=== PATIENT | female | born 1985 | race Caucasian/White ===

== ENCOUNTER 2022-10-01 19:48 | Emergency (ER) | payer MEDICAID, SELFPAY ==
[2022-10-01 19:50] VITALS: BP 113/73; PULSE 78; TEMP 37; O2SAT 97; BMI 30.2
--- NOTE | 2022-10-01 20:14 | ED_ITS ---
HPI - General Adult General Chief complaint: Sore Throat Stated complaint: Pain in throat Time Seen by Provider: 10/01/22 19:56 Source: patient Mode of arrival: ambulatory Limitations: no limitations History of Present Illness HPI narrative: 37-year-old female presents the emergency department with a 5 day history of mild sore throat. Her pain is not been bad enough to try taking Tylenol or ibuprofen. There are no severe symptoms like bleeding, inability to swallow, shortness of breath. Pain is bilateral, located near the tonsils. Does radiate down the throat slightly. She still eating and drinking normally. No known illness exposures. Had strep throat 2 years ago and states that this feels similar. No systemic symptoms. No fever. She has not tried being evaluated in clinic or urgent care any time in the last 5 days. She reports her past medical history is benign, no major long-term health problems. Denies long-term medications. Does have an amoxicillin allergy. ROS notable for HEENT symptoms as above only, otherwise denies other generalized, HEENT respiratory or skin changes Related Data Home Medications Medication Instructions Recorded Confirmed No Known Home Medications 10/01/22 10/01/22 Allergies Allergy/AdvReac Type Severity Reaction Status Date / Time amoxicillin Allergy Mild Rash Verified 10/01/22 19:54 Latex, Natural Rubber Allergy Mild Rash Verified 10/01/22 19:54 PFSH PFSH Social History Smoking Status: Never smoker Do you use any of these nicotine containing products: None Second hand tobacco smoke exposure: No How often do you have a drink containing alcohol: never AUDIT-C Alcohol total score: 0 Non-prescribed substance use: denies use service: No Exam Const: Vital Signs, click to edit/add: Vital Signs - 24 hr 10/01/22 19:50 Temperature 98.6 F Pulse Rate [Pulse Oximeter] 78 Blood Pressure [Ri ght Upper Arm] 113/73 Pulse Oximetry 97 Oxygen Delivery Me thod Room Air Documenting provider has reviewed patient's vital signs: yes Common normals: no apparent distress General appearance: cooperative and well kempt Other: Does not appear acutely ill HENMT: Common normals: TM's normal bilaterally Tympanic membrane: TM's normal bilaterally Other: No blisters, no enlargement of tonsils, minimal erythema to the tonsillar pillars. No swelling or exudate. Normal appearance of tongue, lips and other oral mucosa. Normal dentition Eye: Common normals: conjunctivae normal General eye: normal appearance of both eyes Conjunctiva: conjunctiva(e) normal Neck & C-Spine: Common normals: full ROM Other: Mild anterior cervical lymphadenopathy only. Resp: Common normals: normal respiratory effort, no use of accessory muscles and clear to auscultation bilaterally Effort & inspection: able to speak in complete sentences Auscultation: clear to auscultation bilaterally Cardio: Common normals: regular rate, regular rhythm, S1 normal heart sound, S2 normal heart sound and no murmurs Rate: regular rate Rhythm: regular rhythm Heart sounds: S1 normal and S2 normal Psych: Appearance: well kempt Attitude: engaged Activity/motor behavior: appropriate eye contact Mood and affect: euthymic mood Skin: Common normals: no rashes or lesions noted General skin exam: no rashes or lesions noted Course Course Hospital Course: No red flags or signs of severe illness, fevers, dehydration, swelling or abscess. Recommend strep swab. Offered Tylenol for pain, she accepts offer. Await strep results Reevaluation(s) Time of Reevaluation #1: 20:59 Reevaluation #1: Findings discussed with patient. Suspect virus, all questions answered. Alarm symptoms reviewed. Follow-up with primary care provider if not improving in 10 days Vital Signs Vital signs: Initial Vital Signs Temperature 98.6 F 10/01/22 19:50 Temperature Source Temporal Artery Scan 10/01/22 19:50 Pulse Rate 78 10/01/22 19:50 Blood Pressure 113/73 10/01/22 19:50 Blood Pressure Mean 86 10/01/22 19:50 Blood Pressure Position Sitting 10/01/22 19:50 Pulse Oximetry 97 10/01/22 19:50 Oxygen Delivery Method Room Air 10/01/22 19:50 Vital Signs Temperature 98.6 F 10/01/22 19:50 Pulse Rate 78 10/01/22 19:50 Blood Pressure 113/73 10/01/22 19:50 Pulse Oximetry 97 10/01/22 19:50 Oxygen Delivery Method Room Air 10/01/22 19:50 Temperature 98.6 F 10/01/22 19:50 Pulse Rate 78 10/01/22 19:50 Blood Pressure 113/73 10/01/22 19:50 Pulse Oximetry 97 10/01/22 19:50 Oxygen Delivery Method Room Air 10/01/22 19:50 Medical Decision Making Lab Data Lab results reviewed: Yes I reviewed the patient's lab results Lab results narrative: Negative, as expected Labs: Lab Results 10/01/22 Range/Units 17:59 Group A Strep DNA NOT DETECTED (Not Detectd) Discharge Plan Discharge Clinical Impression: Acute viral pharyngitis Patient Disposition: Home w/ Parent or Adult Condition: Stable Instructions: Pharyngitis (ED) Additional Instructions: As we discussed, your strep swab is negative. Your sore throat is most likely caused by simple virus. These are common and contagious. They are not dangerous. Things should improve within about 10 days. Come to the emergency department if your sore throat is so severe that you cannot hold down any liquids for at least 2 days, you have persistent high fevers over 100.4 or you are too weak to ambulate. If her symptoms are not improving in 10 days, I recommend making a follow-up appointment in the clinic to investigate for other sources. In the meantime, you should be using ibuprofen 600 mg every 6 hours as needed for pain and/or Tylenol 1000 mg every 6 hours. You were given Tylenol in the emergency department. You may return to work and or school with no restrictions at this time. Activity Level: No Restrictions Discharge Diet: Regular Prescriptions: No Action No Known Home Medications Stand Alone Forms: [employer] Info Instructions
[2022-10-01] MEDS: ACETAMINOPHEN 500 MG TABLET 1000 MG PO (20:24)
[2022-10-01 20:41] LABS: Strep A DNA Probe* NOT DETECTED (Not Detectd)
== END 2022-10-01 21:06 | disposition home or self-care (01) ==
PROVIDERS: Emergency Provider Family Medicine
DX: J02.9 Acute pharyngitis, unspecified (principal)
CPT/HCPCS: 87651; 99283; A9270

== ENCOUNTER 2024-02-21 17:10 | Emergency (ER) | payer MEDICAID, SELFPAY ==
--- OUTSIDE RECORDS SUMMARY | 2024-02-21 17:11 | XMS_ITS | Clinical Summary ---
Author Organization Formerly [facility], [facility]–1983 Address [address] [address] Care Team Providers Care Sub Acute Care Nurse Name Role Phone Needs Pcp, Assignment Primary Care Provider [phone] Source Comments You are receiving this document as you are listed as the primary care provider,follow-up provider, or the patient has been referred to you for consultation.This is in compliance with the Medicare and[facility],which states Providers who transition their patient to another setting of careor provider of care or refers their patient to another provider of care shouldprovide summary care record for each transition of care or referral. [facility] Allergies Active Allergy Reactions Criticality Noted Date Comments Amoxicillin Rash 07/20/2016 [place] Hives High 07/09/2020 Rashes Latex Rash 07/20/2016 Other Rash 10/20/2020 Cotton clothing and spinal anesthesia Penicillin G Rash 07/20/2016 Medications Medication Sig Dispensed Refills Start Date End Date Status furosemide (LASIX) 20 MG tablet Take 1 Tablet by mouth daily for 2 days. 2 Tablet 10/29/2020 Active Additional Information Patient not taking.Reported on 12/29/2020 Active Problems No known active problems Resolved Problems Problem Noted Date Diagnosed Date Resolved Date Multigravida of advanced mat ernal age in second trimester 07/09/2020 10/24/2020 Previous delivery a ffecting , antepartum 07/09/2020 10/24/2020 Multigravida of advanced mat ernal age in first trimester 06/02/2020 03/20/2021 Immunizations Name Administration Dates Next Due DTP 03/21/1995, 4,05/12/1987,10/03/1985, HepB, Unspecified Formulation 07/19/2001, 002,02/08/2001,01/28/2000 IPV (Polio) 06/28/1993,04/24/1986,06/16/1984 ,04/21/1984 MMR 01/28/2000,04/21/1997,12/26/1984 Tdap 06/09/2009 Family History Medical History Relation Name Comments Heart Father - on blood thin ners Relation Name Status Comments Father Alive Mother Alive Brother 1 Alive Brother 2 Alive Brother 3 Alive Maternal Grandfather Alive Maternal Grandmother Alive Paternal Grandfather Paternal Grandmother Alive Sister 1 Alive Sister 2 Alive Social History Tobacco Use Types Packs/Day Years Used Date Smoking Tobacco: Never Smokeless Tobacco: Never Alcohol Use Standard Drinks/Week Comments Not Currently 0 (1 standard drink = 0.6 oz pur e alcohol) Depression Answer Date Recor ded Last EPDS Total Score 3 12/29/2020 Last EPDS Self Harm Result 0-->never 12/29 Sex and Gender Information Value Date Recorded Sex Assigned at Not on file Gender Identity Not on file Sexual Orientation Not on file Last Filed Vital Signs Vital Sign Reading Time Taken Comments Blood Pressure 110/79 01/04/2022 10:05 AM TOOL OR DIE DRAWING CHECKER Pulse 92 01/04/2022 10:05 AM TOOL OR DIE DRAWING CHECKER Temperature - - Respiratory Rate - - Oxygen Saturation - - Inhaled Oxygen Concentration - - Weight 74.8 kg (164 lb 12.8 oz) 022 10:05 AM TOOL OR DIE DRAWING CHECKER Height 155.6 cm (5' 1.25) 05/06/2021 1 0:44 AM CDT Body Mass Index 30.89 05/06/2021 10:44 AM CDT Plan of Treatment Health Maintenance Due Date Last Done Comments Mammogram 1985 Adult Preventive Visit 09/22/2001 DTaP/Tdap/Td (7 - Tdap) 06/10/2019 06/10/19 10, 03/21/1995, 01/20/1994, Additional history exists COVID-19 Vaccine ( season) 2023 Influenza (#1) 2023 Cervical Cancer Screening 04/21/2025 04/21/2020 Zoster/Shingles (1 of 2) 09/22/2033 IPV (Polio) Completed 06/28/1993, 05/1986, 06/16/1984, Additional history exists HepB Completed 07/19/2001, 04/21, 02/08/2001, Additional history exists HIV Screening (Preventive Services) Completed 04/21/2020 Hep C Screening (Preventive Services) Completed 04/21/2020 HPV Vaccine Aged Out No longer eligi ble based on patient's age to complete this topic HepA Aged Out No longer eligi ble based on patient's age to complete this topic Hib Aged Out No longer eligi ble based on patient's age to complete this topic MCV4 Aged Out No longer eligi ble based on patient's age to complete this topic Pneumococcal Aged Out No longer eligi ble based on patient's age to complete this topic Procedures Procedure Name Priority Date/Time Associated Diagnosis Comments PAP TEST Routine 04/21/2020 1:15 PM TOOL OR DIE DRAWING CHECKER Cervical cancer screening HIV 1/2 AG/AB 4TH GEN Routine 04/21/2020 12:33 PM TOOL OR DIE DRAWING CHECKER Multigravida of advanced maternal age in first trimester HEPATITIS C ANTIBODY, WITH REFLEX Routine 04/21/2020 12:33 PM TOOL OR DIE DRAWING CHECKER Multigravida of advanced maternal age in first trimester from Last 3 Months or Most Recently Relevant to Health Maintenance Results * PAP Test (04/21/2020 1:15 PM TOOL OR DIE DRAWING CHECKER) Case Report Pap Case: [id number] Authorizing Provider: Gale Miner MD Collected: 04/21/2020 1315 Ordering Location: [place] [address] Received: 04/21/2020 1530 Obstetrics/Gynec ology First Screen: Chhaya Santoyo Specimen: Pap Test, Routine, Cervix/Endocervix 04/28/2020 3:04 PM TOOL OR DIE DRAWING CHECKER [facility] Pap Specimen Adequacy Satisfactory for evaluation, endocervical/cool sformation zone component present. 04/28/2020 3:04 PM TOOL OR DIE DRAWING CHECKER [facility] Pap Interpretation Negative for intraepithelial lesion or malignancy (NILM). 04/28/2020 3:04 PM TOOL OR DIE DRAWING CHECKER [facility] Pap Disclaimer The Pap test is a screening test designed to aid in the detection of cervical cancer and its precursor lesions. It is not a diagnostic procedure and should not be used as the sole means of detecting cervical cancer. Both false-positive and false-negative results may occur. 04/28/2020 3:04 PM TOOL OR DIE DRAWING CHECKER [facility] Gross Description The specimen is received in SurePath fixative and properly labeled. 1 Pap-stained SurePath slide is prepared. 04/28/2020 3:04 PM TOOL OR DIE DRAWING CHECKER [facility] Embedded Images 3:04 PM TOOL OR DIE DRAWING CHECKER [facility] Other Specimen Type ENTIRE ENDOCERVIX / Unknown 04/21/2020 1:15 PM TOOL OR DIE DRAWING CHECKER 04/21/2020 3:30 PM TOOL OR DIE DRAWING CHECKER Comment:LMP: Patient's last menstrual period was 01/22/2020. Gale Miner MD LAB PATHOLOGY Performing Organization Address [facility] Co de Phone Number [facility] [address] * HIV 1/2 Ag/Ab 4th Generation (04/21/2020 12:33 PM TOOL OR DIE DRAWING CHECKER) Pathologist [facility] HIV 1/2 Antigen/Antib billy (4th generation) Negative (Non Reactive) Negative (Non Reactive) 04/21/2020 7:02 PM TOOL OR DIE DRAWING CHECKER [facility] Comment:HIV-1 p24 Antigen an d HIV-1/HIV-2 Antibody not detected Blood Venipuncture / Unknown 04/21/2020 12:33 PM TOOL OR DIE DRAWING CHECKER 04/21/2020 12:33 PM TOOL OR DIE DRAWING CHECKER Gale Miner MD LAB_1 Performing Organization Address [facility] Co de Phone Number [facility] [address] * Hepatitis C Antibody, with Reflex (04/21/2020 12:33 PM TOOL OR DIE DRAWING CHECKER) Hepatitis C Antibody Negative (Non Reactive) Negative (Non Reactive) 04/21/2020 7:02 PM TOOL OR DIE DRAWING CHECKER [facility] Comment:Antibodies to HCV no t detected. Does not exclude the possiblity of exposure to HCV. Blood Venipuncture / Unknown 04/21/2020 12:33 PM TOOL OR DIE DRAWING CHECKER 04/21/2020 12:33 PM TOOL OR DIE DRAWING CHECKER Gale Miner MD LAB_1 [facility] [address] [place] [address], [facility] from Last 3 Months or Most Recently Relevant to Health Maintenance Care Teams Sub Acute Care Nurse Relationship Specialty Start Date End Date [place] [address] PCP - General 04/21/20
[2024-02-21 17:48] VITALS: BP 118/60; PULSE 91; RESP 16; TEMP 36.6; O2SAT 97; BMI 31.2
--- NOTE | 2024-02-21 17:58 | ED.EYEPROB ---
HPI - Eye Problem General Time Seen by Provider: 17:58 Date Seen: 02/21/24 Chief complaint: Eye Problems Stated complaint: eye complaints Time Seen by Provider: 02/21/24 17:58 Source: patient Mode of arrival: ambulatory Limitations: no limitations History of Present Illness HPI Narrative: 38-year-old female who presents today with eye pain and discharge. Notes itching of the right eye starting yesterday along with Yellowish discharge. No vision change, no known injury, recent upper respiratory infection, does not wear contacts. patient complains mostly of itching and very little pain, does not seem to be better or worse with light or dark. Has not taken anything for this. Related Data Home Medications ?Medication ?Instructions ?Recorded ?Confirmed No Known Home Medications 10/01/22 10/01/22 Allergies Allergy/AdvReac Type Severity Reaction Status Date / Time amoxicillin Allergy Mild Rash Verified 10/01/22 19:54 Latex, Natural Rubber Allergy Mild Rash Verified 10/01/22 19:54 PFSH PFSH Social History Smoking Status: Never smoker Do you use any of these nicotine containing products: None Second hand tobacco smoke exposure: No How often do you have a drink containing alcohol: never AUDIT-C Alcohol total score: 0 Non-prescribed substance use: denies use service: No Exam Narrative: Exam Narrative: General: well nourished , NAD Head: Atraumatic and normocephalic ENT: External ears and external nose are normal Eyes: Minimal conjunctival injection of the inferior right eye with no ciliary flush, no swelling of the lid, pupils equal and reactive with no pain with external ocular movement Neck: Full spontaneous range of motion of the neck Lungs: No respiratory distress Musculoskeletal: No tenderness or deformity Neurologic: No gross focal neurologic deficits Skin: No rashes Psych: Mood and affect are appropriate Const: Vital Signs, click to edit/add: Vital Signs - 24 hr 02/21/24 17:48 Temperature 98 F Pulse Rate [Pulse Oximeter] 91 Respiratory Rate 16 Blood Pressure [Ri ght Upper Arm] 118/60 Pulse Oximetry 97 Oxygen Delivery Me thod Room Air Course Course ED Course: reviewed most recent emergency department visit from September 2022 which was for sore throat, strep negative and discharged with instructions for symptom management. Patient presents today with concern for itching red right eye in conjunction with some discharge in recent upper respiratory infection. On exam, mild conjunctivitis on the inferior right eye with no associated lip swelling, no evidence for iritis, no history of trauma, no subconjunctival hemorrhage. Discussed symptom management this with cool packs, also can take Zyrtec for itching and will be started on erythromycin ointment. Vital Signs Vital signs: Initial Vital Signs Temperature 98 F 02/21/24 17:48 Temperature Source Temporal Artery Scan 02/21/24 17:48 Pulse Rate 91 02/21/24 17:48 Respiratory Rate 16 02/21/24 17:48 Blood Pressure 118/60 02/21/24 17:48 Blood Pressure Mean 79 02/21/24 17:48 Blood Pressure Position Sitting 02/21/24 17:48 Pulse Oximetry 97 02/21/24 17:48 Oxygen Delivery Method Room Air 02/21/24 17:48 Vital Signs Temperature 98 F 02/21/24 17:48 Pulse Rate 91 02/21/24 17:48 Respiratory Rate 16 02/21/24 17:48 Blood Pressure 118/60 02/21/24 17:48 Pulse Oximetry 97 02/21/24 17:48 Oxygen Delivery Method Room Air 02/21/24 17:48 Temperature 98 F 02/21/24 17:48 Pulse Rate 91 02/21/24 17:48 Respiratory Rate 16 02/21/24 17:48 Blood Pressure 118/60 02/21/24 17:48 Pulse Oximetry 97 02/21/24 17:48 Oxygen Delivery Method Room Air 02/21/24 17:48 Discharge Plan Discharge Clinical Impression: Conjunctivitis Patient Disposition: Home, Self-Care Condition: Stable Instructions: Conjunctivitis (ED) Additional Instructions: Take Zyrtec or Benadryl for itching Use erythromycin ointment twice a day for 5 days as directed Cool packs for comfort Activity Level: No Restrictions Discharge Diet: Regular Prescriptions: No Action No Known Home Medications Follow Up/Referrals: Provider,Not a Local [Primary Care Provider] - Stand Alone Forms: [employer] Info Instructions
--- OUTSIDE RECORDS SUMMARY | 2024-02-21 18:20 | XMS_ITS | Clinical Summary ---
Author Organization [facility] Address [address], [place] [address] Care Team Providers Care Traffic Control Specialist Name Role Phone Needs Pcp, Assignment Primary Care Provider [phone] Source Comments You are receiving this document as you are listed as the primary care provider,follow-up provider, or the patient has been referred to you for consultation.This is in compliance with the Medicare and[facility] E[facility] Incentive Program,which states Providers who transition their patient to another setting of careor provider of care or refers their patient to another provider of care shouldprovide summary care record for each transition of care or referral. [facility] Allergies Active Allergy Reactions Criticality Noted Date Comments Amoxicillin Rash 07/20/2016 [place] Hives High 07/09/2020 Rashes Latex Rash 07/20/2016 [...] Comments Blood Pressure 110/79 01/04/2022 10:05 AM SCHOOL LIBRARIAN Pulse 92 01/04/2022 10:05 AM SCHOOL LIBRARIAN Temperature - - Respiratory Rate - - Oxygen Saturation - - Inhaled Oxygen Concentration - - Weight 74.8 kg (164 lb 12.8 oz) 022 10:05 AM SCHOOL LIBRARIAN Height 155.6 cm (5' 1.25) 05/06/2021 1 [...] Comments PAP TEST Routine 04/21/2020 1:15 PM SCHOOL LIBRARIAN Cervical cancer screening HIV 1/2 AG/AB 4TH GEN Routine 04/21/2020 12:33 PM SCHOOL LIBRARIAN Multigravida of advanced maternal age in first trimester HEPATITIS C ANTIBODY, WITH REFLEX Routine 04/21/2020 12:33 PM SCHOOL LIBRARIAN Multigravida of advanced maternal age in first trimester from Last 3 Months or Most Recently Relevant to Health Maintenance Results * PAP Test (04/21/2020 1:15 PM SCHOOL LIBRARIAN) Case Report Pap Case: [id number] Authorizing Provider: Gale Miner MD Collected: 04/21/2020 1315 Ordering Location: [place] [address] Received: 04/21/2020 1530 Obstetrics/Gynec ology First Screen: Chhaya Santoyo Specimen: Pap Test, Routine, Cervix/Endocervix 04/28/2020 3:04 PM SCHOOL LIBRARIAN [facility] Pap Specimen Adequacy Satisfactory for evaluation, endocervical/cool sformation zone component present. 04/28/2020 3:04 PM SCHOOL LIBRARIAN [facility] Pap Interpretation Negative for intraepithelial lesion or malignancy (NILM). 04/28/2020 3:04 PM SCHOOL LIBRARIAN [facility] Pap Disclaimer The Pap test is a screening test designed to aid in the detection of cervical cancer and its precursor lesions. It is not a diagnostic procedure and should not be used as the sole means of detecting cervical cancer. Both false-positive and false-negative results may occur. 04/28/2020 3:04 PM SCHOOL LIBRARIAN [facility] Gross Description The specimen is received in SurePath fixative and properly labeled. 1 Pap-stained SurePath slide is prepared. 04/28/2020 3:04 PM SCHOOL LIBRARIAN [facility] Embedded Images 3:04 PM SCHOOL LIBRARIAN [facility] Other Specimen Type ENTIRE ENDOCERVIX / Unknown 04/21/2020 1:15 PM SCHOOL LIBRARIAN 04/21/2020 3:30 PM SCHOOL LIBRARIAN Comment:LMP: Patient's last menstrual period was 01/22/2020. Gale Miner MD LAB PATHOLOGY Performing Organization Address [facility] Co de Phone Number [facility] [address] * HIV 1/2 Ag/Ab 4th Generation (04/21/2020 12:33 PM SCHOOL LIBRARIAN) Pathologist [facility] HIV 1/2 Antigen/Antib billy (4th generation) Negative (Non Reactive) Negative (Non Reactive) 04/21/2020 7:02 PM SCHOOL LIBRARIAN [facility] Comment:HIV-1 p24 Antigen an d HIV-1/HIV-2 Antibody not detected Blood Venipuncture / Unknown 04/21/2020 12:33 PM SCHOOL LIBRARIAN 04/21/2020 12:33 PM SCHOOL LIBRARIAN Gale Miner MD LAB_1 Performing Organization Address [facility] Co de Phone Number [facility] [address] * Hepatitis C Antibody, with Reflex (04/21/2020 12:33 PM SCHOOL LIBRARIAN) Hepatitis C Antibody Negative (Non Reactive) Negative (Non Reactive) 04/21/2020 7:02 PM SCHOOL LIBRARIAN [facility] Comment:Antibodies to HCV no t detected. Does not exclude the possiblity of exposure to HCV. Blood Venipuncture / Unknown 04/21/2020 12:33 PM SCHOOL LIBRARIAN 04/21/2020 12:33 PM SCHOOL LIBRARIAN Gale Miner MD LAB_1 [facility] [address] [place] [address], [facility] from Last 3 Months or Most Recently Relevant to Health Maintenance Care Teams Traffic Control Specialist Relationship Specialty Start Date End Date [place] [address] PCP - General 04/21/20
== END 2024-02-21 18:30 | disposition home or self-care (01) ==
LOC: ED 18:18
PROVIDERS: Emergency Provider Family Medicine
DX: H10.9 Unspecified conjunctivitis (principal)
CPT/HCPCS: 99283